=== PATIENT | female | born 1925 | race Caucasian/White ===

== ENCOUNTER 2016-09-29 10:09 | Inpatient (IN) | payer MEDICARE, OTHER ==
[2016-09-28 14:05] LABS: HEMATOCRIT 33.7 % (36.0-48.0); HEMOGLOBIN 11.1 g/dL (12.0-16.0)
[2016-09-28 14:16] LABS: BUN (BLOOD UREA NITROGEN) 26 MG/DL (6-23); CHLORIDE, SERUM 109 MMOL/L (96-112); CO2 (CARBON DIOXIDE) 29 MMOL/L (24-34); CREATININE 1.67 MG/DL (0.55-1.02); GFR AFRICAN AMERICAN 31 ML/MIN (>=60); GFR NON AFRICAN AMERICAN 27 ML/MIN (>=60); GLUCOSE, SERUM 92 MG/DL (60-99); POTASSIUM, SERUM 5.3 MMOL/L (3.5-5.3); SODIUM, SERUM 143 MMOL/L (135-148)
--- NOTE | ~2016-09-29 | DS ---
Discharge Summary [facility] [address] [place]. [address] NAME: CHANDLER STOUT : [birth year] STATUS : DIS IN PAT#: [id number] AGE: 89 ADM/REG DATE : 09/29/16 MR#: [id number] REPORT SERV DATE: 10/22/16 DICTATED BY: CITLALLI CHRISTENSEN DATE: 10/21/16 REPORT STATUS : Draft TRANSCRIBED BY: LORI DATE: 10/21/16 Data Collection from hospitalization DISCHARGE DIAGNOSES: 1. 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 2. Hypertension. 3. Chronic obstructive pulmonary disease. 4. Aortic valve disorder. 5. Former smoker. 6. History of colon cancer. 7. History of rectal cancer. 8. Stage 3 chronic kidney disease. 9. 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 CONSULTATIONS: Dr. Diego Enrique. Dr. Tracey Burkett. PROCEDURES PERFORMED: Ventral hernia, peristomal hernia primary repair without mesh and revision of colostomy with relocation, 09/29/2016. PATHOLOGY: Skin and colon, colostomy spur-erosion of colonic mucosa with polypoid granulation tissue, benign lymph node. DISCHARGE MEDICATIONS: Norvasc 5 mg daily, Coreg 25 mg twice a day, Nephro-Lio one tablet daily, Protonix 40 mg before breakfast, ProAir two puffs via inhaler as needed, Tylenol 650 mg every four hours as needed, Mylanta 30 mL every four hours as needed, Benadryl 25 mg IV every six hours as needed, Zofran as instructed, Mylicon 80 mg as instructed, Rutherford 5/325 one tablet every six hours as needed, sterile water for injection as instructed, Geodon 10 mg IM every two hours as needed and as instructed, Xanax 0.5 mg daily as needed, Proventil 3 mL via inhaler every two hours as needed, Klor-Con 10 mEq every morning, Zyloprim 100 mg every evening, Lasix 20 mg every morning, ICaps two tablets every morning, Phenergan 25 mg every six hours as needed, cimetidine 400 mg twice a day, MiraLAX as instructed. CONDITION AT DISCHARGE: Stable. DISPOSITION: The patient was discharged to [facility] on a regular/1800-calorie diabetic diet with activities as instructed. She would follow up with me two weeks following discharge. HOSPITAL COURSE: This is an 89-year-old female, who has a parastomal hernia, ventral hernia, and colostomy complications, which would require relocation and repair of the hernia. Treatment options were discussed and it was elected to proceed with surgical intervention. She was admitted to the hospital at this time for further evaluation and treatment. Upon admission, she was taken to the operating room, where she underwent the above-mentioned procedure. She tolerated this well and there were no complications. On postop day #1, she had adequate pain control. Pretty catheter was going to be removed. She had minimal oral intake. On 10/01/2016, she was seen by Dr. Diego Enrique regarding knytd-bx-gbwstws kidney disease. Her white blood cell count was 17.2, procalcitonin level was 1.41. There were a Discharge Summary [address] [address] NAME: CHANDLER STOUT : [birth year] STATUS : DIS IN PAT#: [id number] AGE: 89 ADM/REG DATE : 09/29/16 MR#: [id number] REPORT SERV DATE: 10/22/16 DICTATED BY: CITLALLI CHRISTENSEN DATE: 10/21/16 REPORT STATUS : Draft TRANSCRIBED BY: LORI DATE: 10/21/16 few white blood cells on her urinalysis and small leukocyte esterase positivity. She had received some postoperative Ancef. Her baseline creatinine is 1.6 to 1.8. Her creatinine had risen to 2.06 since admission. It was felt that acute kidney injury was possibly due to infection for prerenal state. There were no other identifiable nephrotoxic agents. Additional labs were going to be obtained. Albumisol would be given. She would not be given any nonsteroidal antiinflammatory drugs. She was also seen by Dr. Tracey Burkett regarding post surgical lethargy and decreased level of consciousness. The patient was lethargic, but could easily open her eyes. She could answer simple questions. She could follow commands. She would then become lethargic again. She was complaining of abdominal pain and some nausea. She denied any chest pain and had no shortness of breath. It was felt that her confusion was likely multifactorial. It was related to pain medication, Dilaudid as well as possible intraabdominal source after surgery, which could not be excluded. It was felt that this was likely postsurgical encephalopathy and confusion. There was also a possibility of urinary retention. Postvoid residual would be checked. Urinalysis would be obtained. If she was retaining urine, we would place a Pretty catheter. Chest x-ray showed atelectasis versus consolidation. Procalcitonin level was going to be checked. If it was elevated, she may be started on antibiotics. Dilaudid was discontinued. Phenergan was held. On the , she had some nausea and vomiting earlier in the day. This had resolved. White count was 14.7. Urinalysis was negative. Dilaudid and gabapentin had been stopped. Toradol was discontinued. Her chest x-ray was concerning for possibly developing pneumonia. She does have a history of COPD. She was started on Levaquin. On 10/03/2016, her mental status seemed to be clearing. She seemed to be back to her baseline. White count was 10.4. Renal function was improving. Urinary retention was suspected. Pretty catheter had been placed. Next day, she had some agitation and confusion during the night. She received Haldol. Renal function continued to improve. Antibiotics were being given for left lower lobe pneumonia. She was felt to have an ileus. We were awaiting bowel function. On the , she was passing flatus. She had had a better night. Small bowel followthrough was performed. The NG tube was going to be clamped. Next day, the NG tube was removed. Clear liquids were started. Pretty catheter was removed. Levaquin was discontinued on the . She was off Lasix. She had no nausea. Bladder scan was performed. The residual was going to be checked. She was evaluated by Physical Therapy. Norvasc was started. Coreg was continued. On 10/09/2016, she had no abdominal pain. She was tolerating some oral intake, although it was poor. She was still on O2 at night. We encouraged her to ambulate. Over the next couple of days, she continued to do well. Discharge planning was performed. On 10/11/2016, she was afebrile. Her vital signs were stable. Discharge instructions were given. Due to her improved and stable condition, she was discharged to [facility] with the above-stated instructions. Information collected by: Kia Hamilton I submit the above information as my discharge summary. TG/MODL Discharge Summary [facility] [address] [place]. [address] NAME: CHANDLER STOUT : [birth year] STATUS : DIS IN PAT#: [id number] AGE: 89 ADM/REG DATE : 09/29/16 MR#: [id number] REPORT SERV DATE: 10/22/16 DICTATED BY: CITLALLI CHRISTENSEN DATE: 10/21/16 REPORT STATUS : Draft TRANSCRIBED BY: OLRI DATE: 10/21/16 Citlalli Christensen M.D. / [id number] CC: Mitchell León M.D. [facility]
--- NOTE | ~2016-09-29 | CN ---
Consultation Report [facility] [address] [place]. [address] NAME: CHANDLER MONTEIRO : [birth year] STATUS : ADM IN [facility]#: [id number] AGE: 89 ADM/REG DATE : 09/29/16 MR#: [id number] REPORT SERV DATE: 10/01/16 DICTATED BY: CAM PARIS DATE: 10/01/16 REPORT STATUS : Draft TRANSCRIBED BY: LORI DATE: 10/01/16 CONSULTATION DATE OF CONSULTATION: 10/01/2016 REASON FOR CONSULT: Postsurgical lethargy and decreased level of cautiousness. HISTORY OF PRESENT ILLNESS: Ms Monteiro is a very pleasant 89-year-old female, who had abdominal surgery. She had ventral hernia repair, parastomal hernia repair, and revision of colostomy with relocation on 09/29/2016. Yesterday on 09/30/2016, she was doing well, but today she was complaining of severe abdominal pain and was not feeling well. Became lethargic with some episodes of shakiness, and she had also nausea and complaining of abdominal pain with radiation to the shoulder, and for these reasons for decreased level of consciousness Internal Medicine was consulted. I am seeing the patient at the bedside, and her daughter also at the bedside. The patient is lethargic, but she easily opens her eyes. She can answer simple questions, and she can follow commands, then she becomes lethargic again, and she is complaining of abdominal pain, and some nausea. She denies any chest pain, no shortness of breath. REVIEW OF SYSTEMS: I was able to do a 14-point review of systems and they are negative, except what is mentioned in the history of present illness. PAST MEDICAL HISTORY: Past medical history was collected from the patient's daughter. The patient had history of colon cancer, history of rectal cancer status post abdominoperineal resection, as well as she has history of hypertension, chronic kidney disease stage III with a baseline creatinine of 1.6 to 1.8, history of AVMs in the colon with a GI bleed, history of aortic valve disorder, and history of COPD. PAST SURGICAL HISTORY: As I dictated rectal cancer surgery. SOCIAL HISTORY: She quit smoking 20 years ago. No alcohol. No recreational drug use. FAMILY HISTORY: Positive for hypertension on both sides. HOME MEDICATIONS: Include albuterol 2 puffs inhaled as needed, allopurinol 100 mg daily, Xanax 0.5 mg daily p.r.n., vitamin D 1 tablet daily, carvedilol 25 p.o. twice a day, cimetidine 400 twice a day, Lasix 20 mg daily, hydrocodone with acetaminophen 5/325 one tablet p.o. q.6 hours p.r.n. for pain, multivitamins daily, omeprazole 40 mg daily, potassium chloride 10 mEq daily, Phenergan 25 mg p.o. q.6 hours p.r.n. for pain. ALLERGIES: SHE HAS ADVERSE REACTION TO CODEINE. PHYSICAL EXAMINATION: Consultation Report [address] [place]. [address] NAME: CHANDLER MONTEIRO : [birth year] STATUS : ADM IN [facility]#: [id number] AGE: 89 ADM/REG DATE : 09/29/16 MR#: [id number] REPORT SERV DATE: 10/01/16 DICTATED BY: CAM PARIS DATE: 10/01/16 REPORT STATUS : Draft TRANSCRIBED BY: LORI DATE: 10/01/16 GENERAL: Well-nourished, well-developed female, not in acute distress. Resting quietly. She opens her eyes to voice and can follow commands. VITAL SIGNS: Blood pressure is 110/53, heart rate 82, respiratory rate 17, and oxygen saturation 96% on 2 L nasal cannula. Temperature 99.3. Respiratory rate of 17. HEENT: Head is atraumatic, normocephalic. Conjunctivae clear. Pupils are equal and reactive to light and accommodation. Extraocular muscles are intact. NECK: Supple. Trachea is midline. LYMPHATICS: No supraclavicular or cervical lymphadenopathy. LUNGS: Diminished breath sounds bilaterally. Decreased respiratory effort. CARDIOVASCULAR SYSTEM: Regular rate and rhythm. Point of maximal impulse is not displaced. ABDOMEN: Soft. There is tenderness on abdominal palpation. The surgical scar looks clean. EXTREMITIES: No clubbing, cyanosis, or edema. NEUROLOGIC: Muscle strength is 5/5 bilaterally on upper and lower extremities. Cranial nerves 3 through 12 are intact. She can follow commands and she can answer simple questions, then she easily goes to sleep. SKIN: Normal color, slightly decreased turgor. LABORATORY RESULTS: Sodium 141, potassium 4.9, chloride 109, carbon dioxide 26, BUN 28, and creatinine 2.06. Blood sugar 138, troponin is less than 0.02. White count is 17.2, hemoglobin 10, hematocrit 31.8, and a platelet count of 174. Arterial blood gas showed pH of 7.3, pCO2 of 49, pO2 of 95. Bicarbonate 23.6 on 28% of inspired oxygen. Chest x-ray showed bibasilar atelectasis/consolidation with probable minimal left suprahilar infiltrate, small left pleural fluid may also be present. Her ammonia level was 15. EKG showed normal sinus rhythm. ASSESSMENT AND PLAN: 1. This is an 89-year-old female status post abdominal surgery, hernia repair done per surgeon Dr. Sara Christensen. I am consulted for her lethargy and confusion. I think this confusion is multifactorial. It is related to pain medications Dilaudid as well as possible intraabdominal source after surgery cannot be excluded. The patient is responsive to voice and touch, and she can follow simple commands. The daughter was concerned about slurred speech, but this could happen if you have encephalopathy, so I told the daughter that most likely this is postsurgical encephalopathy and confusion, which could be related to post surgical course which is accompanied with abdominal pain, and also there is a possibility of urinary retention. We will check her postvoid residuals and we will check her urinalysis, if she will be retaining urine, we will put a Pretty catheter in. 2. Also, she has leukocytosis. Chest x-ray showed atelectasis versus consolidation. We will check her procalcitonin level. If it is elevated, we may start her on antibiotics. 3. We will hold all sedative medications. Dilaudid is already discontinued as well as we will hold the Phenergan, and we will see how the patient is doing. 4. Leukocytosis, could be postsurgical stress related or could be related to postsurgical infection. 5. Chronic kidney disease. Creatinine is currently 2.06. It is increased from the Consultation Report [facility] [address] [place]. [address] NAME: CHANDLER MONTEIRO : [birth year] STATUS : ADM IN [facility]#: [id number] AGE: 89 ADM/REG DATE : 09/29/16 MR#: [id number] REPORT SERV DATE: 10/01/16 DICTATED BY: CAM PARIS DATE: 10/01/16 REPORT STATUS : Draft TRANSCRIBED BY: LORI DATE: 10/01/16 baseline to 1.6. We will continue her fluids, and we will discontinue her Lasix, but taking into consideration her having infiltrates on the chest x-ray, we will watch closely her volume status to prevent volume overload, and I will discontinue potassium from the fluids. I had a discussion with the patient's daughter, and I told her that this is most likely post surgical confusion which could be related to multiple post surgical issues including urinary retention, UTI, and encephalopathy which could happen just because of the pain medications and recent surgery. If the patient's mental status does not improve, we may do an MRI tomorrow or may be on a later day. This was all discussed with the patient's daughter. MG/LORI Cam Paris M.D. / [id number] CC: Sara Christensen M.D.
--- NOTE | ~2016-09-29 | OP ---
Record Of Operation [facility] [address] [place]. [address] NAME: CHANDLER STOUT : [birth year] STATUS : ADM IN PAT#: [id number] AGE: 89 ADM/REG DATE : 09/29/16 MR#: [id number] REPORT SERV DATE: 09/30/16 DICTATED BY: CITLALLI CHRISTENSEN DATE: 09/29/16 REPORT STATUS : Draft TRANSCRIBED BY: MODL DATE: 09/29/16 DATE OF PROCEDURE: PREPROCEDURE DIAGNOSIS: Stoma complication, parastomal hernia, and unable to pouch due to abdominal wall deformity. PROCEDURE: Ventral hernia, peristomal hernia primary repair without mesh, and revision of colostomy with relocation. CURING ROOM WORKER: Stacia. DESCRIPTION OF PROCEDURE: The patient was taken to the operating room and placed in the supine position. An attempt was made at proctoscopy, due to the patient's request that she has a phantom sensation, she needs to have a bowel movement. The patient was inspected, however, she has had an abdominoperineal resection, there was no rectal stump or anus, and therefore proctoscopy was aborted. The patient was positioned in supine and prepped and draped in the usual sterile fashion. After pursestring suture was placed around the colostomy followed by 4 x 4 and Ioban. The patient's prior midline incision was used using the scalpel blade for a total distance of 12 cm. This was carried down to the level of the fascia. Anterior fascia was opened using cautery between Kochers. Posterior fascia was opened between two hemostats and sharp dissection had to be performed using a 15 blade, due to the dense adhesions of the bowel to the abdominal wall. This took over 2.5 hours to lyse the adhesions and in order to identify the colostomy in the left lower quadrant. Here, the fascia was identified, Kochers were placed on the fascia, and then the Ioban was opened removing the 4 x 4. An elliptical incision was made around the colostomy. Allis were placed on the skin elevating the colostomy from the surrounding structures. The cautery was used to dissect circumferentially and encountered the hernia sac. The hernia sac was filled with small bowel, interloop adhesions had to be taken down with both cautery and sharp dissection, and then the colostomy spur was fed through the abdominal wall site wrapped with lap pad and kept intra-abdominally as the fascia was closed using a running #1 Prolene stitch. The patient had the colostomy formed with the descending colon. It was of small aperture also small caliber, and there were many adhesions which made it difficult to mobilize the descending colon from the left lower quadrant to the right upper quadrant. The small bowel loops had to be mobilized, the omentum and interloop adhesions in order to gain enough length to bring the stoma to the patient's right upper quadrant. Once this was accomplished, then a new stoma site was created, Guilherme on the fascia, Guilherme on the dermis, and Allis on the skin. A circular incision was made using the cutting current, this was carried down to the level of the fascia using cautery. Anterior fascia was opened in a linear fashion, two finger breaths. The muscle and fibers of the rectus sheaths were then split opened in the direction of the muscle fibers using a Abbie and the posterior fascia was opened over two fingerbreadths to protect the abdominal contents. A Lydia was placed [id number] grasping the end of the prior colostomy without losing any length, this was brought up through the new aperture. At this point, there was good hemostasis. The midline incision was closed with Prolene suture [id number], [id number], tying in the center, irrigating all wounds, now it was noted that there was caseous material still in the umbilicus that was not removed during prepping. This was removed with a hemostats. Record Of Operation [facility] [address] [place]. [address] NAME: CHANDLER STOUT : [birth year] STATUS : ADM IN [facility]#: [id number] AGE: 89 ADM/REG DATE : 09/29/16 MR#: [id number] REPORT SERV DATE: 09/30/16 DICTATED BY: CITLALLI CHRISTENSEN DATE: 09/29/16 REPORT STATUS : Draft TRANSCRIBED BY: MODL DATE: 09/29/16 The area was cleaned with Betadine paint. The midline incision was closed with gloria. Then, the Charity's fascia was closed with 3-0 Vicryl suture and the skin edges of the prior colostomy was closed with interrupted 3-0 Vicryl sutures with 1 cm gaps. These were then later filled with Betadine paint soaked Telfa pablo, two 4x4s, and silk tape. An airstrip was placed over the midline and then the colostomy was matured by removing the spur with cautery. Interrupted 3-0 Vicryl stitches were placed in four quadrants and then single interrupted in between each. The appliance was cut to size and applied. She tolerated the procedure well. ALEXANDER/LORI Citlalli Christensen M.D. / [id number] CC: Citlalli Christensen M.D.
--- NOTE | ~2016-09-29 | HP ---
History And Physical [facility] [address] [place]. [address] NAME: CHANDLER STOUT : [birth year] STATUS : ADM IN [facility]#: [id number] AGE: 89 ADM/REG DATE : 09/29/16 MR#: [id number] REPORT SERV DATE: 09/29/16 DICTATED BY: CITLALLI CRUZ DATE: 09/29/16 REPORT STATUS : Draft TRANSCRIBED BY: MODMary DATE: 09/29/16 DATE OF ADMISSION: 09/29/2016 REASON FOR ADMISSION: Parastomal hernia repair and ventral hernia repair and relocation of colostomy. PAST MEDICAL HISTORY: Hypertension; parastomal hernia; aortic valve disorder; and COPD. PRIOR SURGICAL HISTORY: Abdominoperineal resection 1970; parastomal hernia repair in 2001; and the reason for the abdominoperineal resection was rectal cancer. She has had colonoscopy and EGD in 2012. SOCIAL HISTORY: She used to smoke a pack of cigarettes daily, quit 20 years ago, does not drink. She is single. FAMILY HISTORY: Significant for colon cancer and heart failure. ALLERGIES: CODEINE. MEDICATIONS: Nystatin; vitamin D; potassium; allopurinol; furosemide; carvedilol; ; omeprazole; aspirin; alprazolam; hydrocodone; promethazine; and albuterol. REVIEW OF SYSTEMS: As stated in the HPI, otherwise, negative. PHYSICAL EXAMINATION: VITAL SIGNS: 62, 182/88, BMI 29. GENERAL: Alert, obese, white female, in no acute distress. HEENT: Normocephalic, atraumatic. EOMI. PERRLA. Oropharynx is clear. NECK: Supple. No lymphadenopathy. LUNGS: Clear to auscultation bilaterally. HEART: Regular rate and rhythm. ABDOMEN: Obese. She has 2 different midline incisions and colostomy in the left lower quadrant with a parastomal hernia which causes the colostomy to almost touch her thigh when she is seated. EXTREMITIES: Moves all extremities well. NEUROLOGIC: Cranial nerves 2 through 12 intact. SKIN: No rashes. ASSESSMENT AND PLAN: 89-year-old female with parastomal hernia, ventral hernia, and colostomy complication, requiring relocation and repair of the hernia. SL/MODL History And Physical [place] [address] [address] NAME: CHANDLER STOUT : [birth year] STATUS : ADM IN PAT#: [id number] AGE: 89 ADM/REG DATE : 09/29/16 MR#: [id number] REPORT SERV DATE: 09/29/16 DICTATED BY: CITLALLI CRUZ DATE: 09/29/16 REPORT STATUS : Draft TRANSCRIBED BY: BRETL DATE: 09/29/16 Citlalli Cruz M.D. / [id number] CC: Citlalli Cruz M.D.
--- NOTE | ~2016-09-29 | CN ---
Consultation Report [facility] [address] [place]. [address] NAME: CHANDLER MONTEIRO : [birth year] STATUS : ADM IN [facility]#: [id number] AGE: 89 ADM/REG DATE : 09/29/16 MR#: [id number] REPORT SERV DATE: 10/01/16 DICTATED BY: RONY SAM DATE: 10/01/16 REPORT STATUS : Draft TRANSCRIBED BY: MODMary DATE: 10/01/16 NEPHROLOGY CONSULTATION DATE OF CONSULTATION: 10/01/2016 INDICATION FOR CONSULTATION: Acute on chronic kidney disease. HISTORY OF PRESENT ILLNESS: Mrs. Monteiro is an 89-year-old female who is seen for acute on chronic kidney disease following admission for parastomal hernia repair, ventral hernia repair, and relocation of colostomy. She is followed for stage 3 CKD in [place], [place] with a baseline creatinine of 1.4 to 1.6. Her creatinine was 1.67 on admission on 09/28/2016, rising to 2.06 on 09/11/2016. 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 She has had some postop altered mentation and presently is very sleepy/lethargic and arouses with some difficulty. Earlier she had a postvoid residual bladder scan but apparently voided well after this scan. There was no intraoperative hypotension recorded and no postop hypotension noted. She has been on no nonsteroidal antiinflammatory drugs or other types of nephrotoxic agents. Her white count is trending higher to a value of 17 to a value of 17.2 and procalcitonin level was 1.41. She has a few wbc's on her urinalysis and small leukocyte esterase positivity. She did receive some postop Ancef. PAST MEDICAL HISTORY: CKD stage 3, baseline creatinine 1.4 to 1.6; COPD; macular degeneration; hypertension; osteoarthritis; gout; obstructive sleep apnea does not use CPAP; anemia; gastroesophageal reflux disease; history of colonic AVMs with GI bleed; history of colon cancer status post colorectal resection and ostomy in 1970; apparent dysphagia; prior bilateral cataract surgery with lens implants; and revisions of colostomy and hernia in 2011. REVIEW OF SYSTEMS: Presently unable to obtain. ALLERGIES: CODEINE, CAUSES NAUSEA AND VOMITING. HOME MEDICATIONS: Allopurinol; albuterol; B complex with C; Coreg; cimetidine; furosemide; hydrocodone; multivitamin; Prilosec; potassium chloride; and Phenergan. FAMILY HISTORY: Per chart. Positive for hypertension. SOCIAL HISTORY: Quit smoking 20 years ago. No alcohol use. No illicit drug use per chart. PHYSICAL EXAMINATION: GENERAL: Elderly female, arouses, occasionally responds with yes or no answers and falls back to sleep. Consultation Report [facility] [id number] [place]. [address] NAME: CHANDLER MONTEIRO : [birth year] STATUS : ADM IN [facility]#: [id number] AGE: 89 ADM/REG DATE : 09/29/16 MR#: [id number] REPORT SERV DATE: 10/01/16 DICTATED BY: RONY SAM DATE: 10/01/16 REPORT STATUS : Draft TRANSCRIBED BY: MODL DATE: 10/01/16 VITAL SIGNS: Blood pressure 110/53, temperature 93.3, respiratory rate 18, and pulse 80. HEENT: Eyes, no scleral icterus. Pupils reactive. Nares patent. No lesions. THROAT: No injection. Mucous membranes somewhat dry. NECK: No thyromegaly, masses, or bruits. CHEST/LUNGS: Bilateral crackles. No wheezes. No dullness. CARDIAC: Regular rate and rhythm. A 1/6 systolic ejection murmur. No gallop. No rub. ABDOMEN: With binding wounds not inspected. Questionable decreased bowel sounds in the lower abdomen, appropriately tender. : Exam not performed. RECTAL: Exam not performed. BREASTS: Exam not performed. EXTREMITIES: No edema. No calf tenderness. DERMIS: No rash. No skin lesions. NEUROLOGIC: Unable to evaluate due to retracted sedation. MUSCULOSKELETAL: No deformity. IMPRESSION: 1. Acute on chronic kidney disease. Baseline creatinine is 1.6 to 1.8. Creatinine rising from 1.67 to 2.06 since admission. Acute kidney injury possibly due to infection, prerenal state. No other identifiable nephrotoxic agents. 2. Status post parastomal hernia repair, ventral hernia repair, relocation of colostomy. 3. Chronic obstructive pulmonary disease. 4. Macular degeneration. 5. Hypertension. 6. Gout. 7. Osteoarthritis. 8. Obstructive sleep apnea with no use of CPAP. 9. Anemia. 10.Gastroesophageal reflux disease. 11.Colon cancer with remote colorectal resection and ostomy. 12.History of AVMs and GI bleeding. PLAN: 1. Additional lab. 2. Albumisol. 3. No nonsteroidal antiinflammatory drugs. MACEY/LORI Rony Sam M.D. / [id number] Consultation Report [address] [place]. [address] NAME: CHANDLER MONTEIRO : [birth year] STATUS : ADM IN [facility]#: [id number] AGE: 89 ADM/REG DATE : 09/29/16 MR#: [id number] REPORT SERV DATE: 10/01/16 DICTATED BY: RONY SAM DATE: 10/01/16 REPORT STATUS : Draft TRANSCRIBED BY: LORI DATE: 10/01/16 CC: Sara Christensen M.D.
[~2016-09-29 10:09] MED LIST: ASAB PO; CIMETIDINE400 MG PO; COREG25 PO; EYE CAPS; ICAPS MV PO; KLOR-CON 1010 MEQ PO; L20 PO; NEPHRO-VITE PO; NORCO1 TA1 PO; NORCO1 TA2 PO; PR25 PO; PRILO PO; PROAIR HFA INH; X5 PO; Z100 PO
[2016-09-30 05:29] LABS: BASOPHILS 0 %; EOSINOPHILS 0 %; HEMATOCRIT 31.6 % (36.0-48.0); HEMOGLOBIN 10.2 g/dL (12.0-16.0); IMMATURE GRANULOCYTES 0.4 %; IMMATURE GRANULOCYTES ABSOLUTE 0.05 10/3/uL (0.0-0.11); LYMPHOCYTES 4.4 %; LYMPHOCYTES ABSOLUTE 0.59 10/3/uL (0.67-4.30); MEAN CORPUS HGB CONC 32.3 g/dL (32.0-36.0); MEAN CORPUSCULAR HEMOGLOB 31.2 pg (26.0-34.0); MEAN CORPUSCULAR VOLUME 96.6 fL (80-100); MEAN PLATELET VOLUME 10.7 fL (9.2-13.0); MONOCYTES 6.3 %; MONOCYTES ABSOLUTE 0.83 10/3/uL (0.21-1.20); NEUTROPHILS 88.9 %; PLATELET COUNT 202 10/3/uL (150-400); RBC DISTRIBUTION WIDTH 15.2 % (12.0-16.0); RED CELL COUNT 3.27 10/6/uL (4.0-5.6)
[2016-09-30 05:33] LABS: MANUAL DIFF NO %; WHITE BLOOD CELLS 13.3 10/3/uL (4.5-10.5)
[2016-09-30 05:40] LABS: BUN (BLOOD UREA NITROGEN) 27 MG/DL (6-23); CHLORIDE, SERUM 109 MMOL/L (96-112); CO2 (CARBON DIOXIDE) 26 MMOL/L (24-34); GFR AFRICAN AMERICAN 29 ML/MIN (>=60); GFR NON AFRICAN AMERICAN 25 ML/MIN (>=60); POTASSIUM, SERUM 4.6 MMOL/L (3.5-5.3); SODIUM, SERUM 143 MMOL/L (135-148)
[2016-09-30 05:41] LABS: CALCIUM, SERUM 8.3 MG/DL (8.5-10.4); GLUCOSE, SERUM 175 MG/DL (60-99)
[2016-10-01 13:44] LABS: BASOPHILS 0.1 %; BASOPHILS ABSOLUTE 0.01 10/3/uL (0.0-0.16); EOSINOPHILS 0.1 %; EOSINOPHILS ABSOLUTE 0.01 10/3/uL (0.0-0.53); HEMATOCRIT 31.8 % (36.0-48.0); IMMATURE GRANULOCYTES 0.4 %; IMMATURE GRANULOCYTES ABSOLUTE 0.07 10/3/uL (0.0-0.11); LYMPHOCYTES 3.9 %; LYMPHOCYTES ABSOLUTE 0.67 10/3/uL (0.67-4.30); MEAN CORPUS HGB CONC 31.4 g/dL (32.0-36.0); MEAN CORPUSCULAR HEMOGLOB 31.3 pg (26.0-34.0); MEAN CORPUSCULAR VOLUME 99.4 fL (80-100); MEAN PLATELET VOLUME 11.1 fL (9.2-13.0); MONOCYTES 15.5 %; MONOCYTES ABSOLUTE 2.67 10/3/uL (0.21-1.20); NEUTROPHILS ABSOLUTE 13.81 10/3/uL (2.02-8.40); PLATELET COUNT 174 10/3/uL (150-400); RBC DISTRIBUTION WIDTH 15.3 % (12.0-16.0); WHITE BLOOD CELLS 17.2 10/3/uL (4.5-10.5)
[2016-10-01 13:45] LABS: MANUAL DIFF NO %
[2016-10-01 13:46] LABS: ALLENS TEST Pos; BE (BASE EXCESS) -2.9 MEQ/L (0 +/- 2.5); CARBOXYHEMOGLOBIN 0.9 % (0-3); DEVICE NC; HCO3 (ACTUAL BICARBONATE) 23.6 MEQ/L (23-27); HEMOBLOGIN CONTENT 10.2 G/DL (12-16); INSTRUMENT SERIAL # 8083; METHEMOGLOBIN 0.2 % (0-3); O2 CONTENT 13.9 VOL% (18-24); OPERATOR ID 35798; PCO2 (CO2 TENSION) 49 MMHG (35-45); PO2 (O2 TENSION) 95 MMHG (79-93); SAMPLE Arterial
[2016-10-01 14:04] LABS: BUN (BLOOD UREA NITROGEN) 28 MG/DL (6-23); CALCIUM, SERUM 8.6 MG/DL (8.5-10.4); CHLORIDE, SERUM 109 MMOL/L (96-112); CO2 (CARBON DIOXIDE) 26 MMOL/L (24-34); CREATININE 2.06 MG/DL (0.55-1.02); GFR AFRICAN AMERICAN 24 ML/MIN (>=60); GFR NON AFRICAN AMERICAN 21 ML/MIN (>=60); POTASSIUM, SERUM 4.9 MMOL/L (3.5-5.3); SODIUM, SERUM 141 MMOL/L (135-148); TROPONIN I <0.02 NG/ML (<0.05)
[2016-10-01 14:05] LABS: GLUCOSE, SERUM 138 MG/DL (60-99)
[2016-10-01 15:10] LABS: PROCALCITONIN 1.41 ng/mL (<0.5)
[2016-10-01 15:20] LABS: FOLATE 42.9 NG/ML (>5.2)
[2016-10-01 16:58] LABS: ASCORBIC ACID (UR NOT ORDER) NEG (NEG); BILIRUBIN, URINE NEGATIVE (NEG); KETONE, URINE NEGATIVE (NEG); LEUKOCYTE ESTERASE(NOT OR SMALL (NEG); WBC (NOT ORDERED) (RFLEX) 6 (0-5)
[2016-10-02 07:34] LABS: ALBUMIN 3.1 G/DL (3.5-5.0); BUN (BLOOD UREA NITROGEN) 30 MG/DL (6-23); CALCIUM, SERUM 8.3 MG/DL (8.5-10.4); CHLORIDE, SERUM 109 MMOL/L (96-112); CO2 (CARBON DIOXIDE) 22 MMOL/L (24-34); CREATININE 2.22 MG/DL (0.55-1.02); GFR AFRICAN AMERICAN 22 ML/MIN (>=60); GFR NON AFRICAN AMERICAN 19 ML/MIN (>=60); POTASSIUM, SERUM 4.8 MMOL/L (3.5-5.3); SODIUM, SERUM 142 MMOL/L (135-148)
[2016-10-02 07:35] LABS: GLUCOSE, SERUM 103 MG/DL (60-99); PHOSPHORUS, SERUM 2.8 MG/DL (2.5-4.5)
[2016-10-02 07:41] LABS: T PROTEIN (ELECT)(NOT OR 5.7 G/DL (6.0-8.5)
[2016-10-02 08:04] LABS: BASOPHILS 0.1 %; BASOPHILS ABSOLUTE 0.02 10/3/uL (0.0-0.16); EOSINOPHILS 0.1 %; EOSINOPHILS ABSOLUTE 0.02 10/3/uL (0.0-0.53); HEMOGLOBIN 9.2 g/dL (12.0-16.0); IMMATURE GRANULOCYTES 0.2 %; IMMATURE GRANULOCYTES ABSOLUTE 0.03 10/3/uL (0.0-0.11); LYMPHOCYTES 5.7 %; LYMPHOCYTES ABSOLUTE 0.84 10/3/uL (0.67-4.30); MEAN CORPUS HGB CONC 32.5 g/dL (32.0-36.0); MEAN CORPUSCULAR HEMOGLOB 31.5 pg (26.0-34.0); MEAN CORPUSCULAR VOLUME 96.9 fL (80-100); MEAN PLATELET VOLUME 10.5 fL (9.2-13.0); MONOCYTES 11.9 %; MONOCYTES ABSOLUTE 1.74 10/3/uL (0.21-1.20); PLATELET COUNT 155 10/3/uL (150-400); RBC DISTRIBUTION WIDTH 15.5 % (12.0-16.0); RED CELL COUNT 2.92 10/6/uL (4.0-5.6); WHITE BLOOD CELLS 14.7 10/3/uL (4.5-10.5)
[2016-10-02 08:05] LABS: HEMATOCRIT 28.3 % (36.0-48.0); MANUAL DIFF NO %
[2016-10-03 06:58] LABS: BASOPHILS 0.1 %; BASOPHILS ABSOLUTE 0.01 10/3/uL (0.0-0.16); EOSINOPHILS 0.6 %; EOSINOPHILS ABSOLUTE 0.06 10/3/uL (0.0-0.53); HEMATOCRIT 27.2 % (36.0-48.0); HEMOGLOBIN 8.9 g/dL (12.0-16.0); IMMATURE GRANULOCYTES 0.3 %; IMMATURE GRANULOCYTES ABSOLUTE 0.03 10/3/uL (0.0-0.11); LYMPHOCYTES 5.4 %; LYMPHOCYTES ABSOLUTE 0.56 10/3/uL (0.67-4.30); MEAN CORPUS HGB CONC 32.7 g/dL (32.0-36.0); MEAN CORPUSCULAR HEMOGLOB 31.2 pg (26.0-34.0); MEAN CORPUSCULAR VOLUME 95.4 fL (80-100); MONOCYTES 10.9 %; MONOCYTES ABSOLUTE 1.13 10/3/uL (0.21-1.20); NEUTROPHILS 82.7 %; NEUTROPHILS ABSOLUTE 8.56 10/3/uL (2.02-8.40); PLATELET COUNT 150 10/3/uL (150-400); RBC DISTRIBUTION WIDTH 15.4 % (12.0-16.0); RED CELL COUNT 2.85 10/6/uL (4.0-5.6); WHITE BLOOD CELLS 10.4 10/3/uL (4.5-10.5)
[2016-10-03 07:05] LABS: MANUAL DIFF NO %
[2016-10-03 07:08] LABS: ALBUMIN 2.6 G/DL (3.5-5.0); BUN (BLOOD UREA NITROGEN) 30 MG/DL (6-23); CALCIUM, SERUM 9.1 MG/DL (8.5-10.4); CHLORIDE, SERUM 112 MMOL/L (96-112); CO2 (CARBON DIOXIDE) 24 MMOL/L (24-34); CREATININE 1.89 MG/DL (0.55-1.02); GFR AFRICAN AMERICAN 27 ML/MIN (>=60); GFR NON AFRICAN AMERICAN 23 ML/MIN (>=60); GLUCOSE, SERUM 91 MG/DL (60-99); PHOSPHORUS, SERUM 2.5 MG/DL (2.5-4.5); POTASSIUM, SERUM 4.1 MMOL/L (3.5-5.3); SODIUM, SERUM 146 MMOL/L (135-148)
[2016-10-04 06:09] LABS: BASOPHILS 0.1 %; BASOPHILS ABSOLUTE 0.01 10/3/uL (0.0-0.16); EOSINOPHILS 1.3 %; EOSINOPHILS ABSOLUTE 0.11 10/3/uL (0.0-0.53); HEMATOCRIT 26.7 % (36.0-48.0); HEMOGLOBIN 8.6 g/dL (12.0-16.0); IMMATURE GRANULOCYTES 0.5 %; IMMATURE GRANULOCYTES ABSOLUTE 0.04 10/3/uL (0.0-0.11); LYMPHOCYTES 8.1 %; MEAN CORPUS HGB CONC 32.2 g/dL (32.0-36.0); MEAN CORPUSCULAR HEMOGLOB 31.2 pg (26.0-34.0); MEAN CORPUSCULAR VOLUME 96.7 fL (80-100); MONOCYTES 8.8 %; MONOCYTES ABSOLUTE 0.76 10/3/uL (0.21-1.20); NEUTROPHILS 81.2 %; PLATELET COUNT 184 10/3/uL (150-400); RBC DISTRIBUTION WIDTH 15.3 % (12.0-16.0); RED CELL COUNT 2.76 10/6/uL (4.0-5.6); WHITE BLOOD CELLS 8.6 10/3/uL (4.5-10.5)
[2016-10-04 06:10] LABS: MANUAL DIFF NO %
[2016-10-04 06:19] LABS: CALCIUM, SERUM 9.6 MG/DL (8.5-10.4); CHLORIDE, SERUM 113 MMOL/L (96-112); CO2 (CARBON DIOXIDE) 22 MMOL/L (24-34); CREATININE 1.64 MG/DL (0.55-1.02); GFR AFRICAN AMERICAN 32 ML/MIN (>=60); GFR NON AFRICAN AMERICAN 28 ML/MIN (>=60); GLUCOSE, SERUM 84 MG/DL (60-99); POTASSIUM, SERUM 3.9 MMOL/L (3.5-5.3); SODIUM, SERUM 147 MMOL/L (135-148)
[2016-10-04 06:20] LABS: BUN (BLOOD UREA NITROGEN) 34 MG/DL (6-23)
[2016-10-04 11:32] LABS: ALB RELATIVE % 62.9 % (60.0-89.0); ALBUMIN (ELECTRO) 3.59 GM/DL (3.2-5.5); ALPHA 1 (ELECTRO) 0.25 GM/DL (0.1-0.4); ALPHA 1 RELAT % (NOT ORD) 4.4 % (1.0-4.0); ALPHA 2 (ELECTRO) 0.68 GM/DL (0.5-1.10); BETA GLOBULIN (SPE) 0.55 GM/DL (0.60-1.30); BETA RELATIVE % 9.6 % (9.0-22.0); GAMMA GLOBULIN (SPE) 0.63 G/DL (0.70-1.60); GAMMA RELAT % 11.1 % (6.0-22.0)
[2016-10-05 06:29] LABS: BASOPHILS 0.1 %; BASOPHILS ABSOLUTE 0.01 10/3/uL (0.0-0.16); EOSINOPHILS 1.7 %; EOSINOPHILS ABSOLUTE 0.14 10/3/uL (0.0-0.53); HEMATOCRIT 27.1 % (36.0-48.0); HEMOGLOBIN 8.8 g/dL (12.0-16.0); IMMATURE GRANULOCYTES 1.2 %; LYMPHOCYTES 6.7 %; LYMPHOCYTES ABSOLUTE 0.56 10/3/uL (0.67-4.30); MEAN CORPUS HGB CONC 32.5 g/dL (32.0-36.0); MEAN CORPUSCULAR HEMOGLOB 31.4 pg (26.0-34.0); MEAN CORPUSCULAR VOLUME 96.8 fL (80-100); MEAN PLATELET VOLUME 10.6 fL (9.2-13.0); MONOCYTES 11.1 %; MONOCYTES ABSOLUTE 0.93 10/3/uL (0.21-1.20); NEUTROPHILS 79.2 %; NEUTROPHILS ABSOLUTE 6.65 10/3/uL (2.02-8.40); PLATELET COUNT 191 10/3/uL (150-400); RBC DISTRIBUTION WIDTH 15.1 % (12.0-16.0); WHITE BLOOD CELLS 8.4 10/3/uL (4.5-10.5)
[2016-10-05 06:30] LABS: MANUAL DIFF NO %
[2016-10-05 06:36] LABS: BUN (BLOOD UREA NITROGEN) 33 MG/DL (6-23); CHLORIDE, SERUM 113 MMOL/L (96-112); CO2 (CARBON DIOXIDE) 23 MMOL/L (24-34); CREATININE 1.45 MG/DL (0.55-1.02); GFR AFRICAN AMERICAN 37 ML/MIN (>=60); GFR NON AFRICAN AMERICAN 32 ML/MIN (>=60); GLUCOSE, SERUM 80 MG/DL (60-99); POTASSIUM, SERUM 4.2 MMOL/L (3.5-5.3); SODIUM, SERUM 146 MMOL/L (135-148)
[2016-10-07 05:47] LABS: BUN (BLOOD UREA NITROGEN) 34 MG/DL (6-23); CALCIUM, SERUM 10.8 MG/DL (8.5-10.4); CHLORIDE, SERUM 113 MMOL/L (96-112); CO2 (CARBON DIOXIDE) 26 MMOL/L (24-34); CREATININE 1.24 MG/DL (0.55-1.02); GFR AFRICAN AMERICAN 45 ML/MIN (>=60); GFR NON AFRICAN AMERICAN 39 ML/MIN (>=60); GLUCOSE, SERUM 107 MG/DL (60-99); POTASSIUM, SERUM 3.9 MMOL/L (3.5-5.3); SODIUM, SERUM 145 MMOL/L (135-148)
== END 2016-10-11 21:00 | DRG 329 ==
LOC: SDC/OF 10:09 → PACU 16:39 → 5SO 18:56
PROVIDERS: Hospitalist; Internal Medicine Nephrology; Nurse Practitioner; Surgery
PROC: 0DNM0ZZ Release Descending Colon, Open Approach (ICD-10-PCS; 2016-09-29)
PROC: 0DNS0ZZ (ICD-10-PCS; 2016-09-29)
PROC: 3E0T3CZ (ICD-10-PCS; 2016-09-29)
PROC: 0WQF0ZZ Repair Abdominal Wall, Open Approach (ICD-10-PCS; principal; 2016-09-29 11:45)
PROC: 0D1M0Z4 Bypass Descending Colon to Cutaneous, Open Approach (ICD-10-PCS; 2016-09-29 11:45)
DX: K43.5 Parastomal hernia without obstruction or gangrene (principal); G93.41 Metabolic encephalopathy; N17.9 Acute kidney failure, unspecified; K91.3 Postprocedural intestinal obstruction; J98.11 Atelectasis; Z95.2 Presence of prosthetic heart valve; J44.9 Chronic obstructive pulmonary disease, unspecified; Z79.899 Other long term (current) drug therapy; Z85.048 Personal history of other malignant neoplasm of rectum, rectosigmoid junction, and anus; Z87.891 Personal history of nicotine dependence; Z80.0 Family history of malignant neoplasm of digestive organs; Z82.49 Family history of ischemic heart disease and other diseases of the circulatory system; Z88.5 Allergy status to narcotic agent; Z79.82 Long term (current) use of aspirin; I12.9 Hypertensive chronic kidney disease with stage 1 through stage 4 chronic kidney disease, or unspecified chronic kidney disease; N18.3 Chronic kidney disease, stage 3 (moderate); H35.30 Unspecified macular degeneration; K66.0 Peritoneal adhesions (postprocedural) (postinfection); Z85.038 Personal history of other malignant neoplasm of large intestine
CPT/HCPCS: 36415; 36600; 71010; 74000; 74250; 80048; 80069; 81001; 82043; 82140; 82570; 82607; 82746; 82805; 83735; 84145; 84155; 84165; 84300; 84484; 85014; 85018; 85025; 86850; 86900; 86901; 87040; 87077; 87086; 87186; 88304; 93005; 94640; 97110-GP; 97116-GP; 97162-GP; A9270-GY; C1765; C9113; G8978-CK-GP; G8979-CJ-GP; J0690; J1170; J1630; J1956; J2250; J2405; J2550; J2710; J2795; J3010; P9045